=== PATIENT | male | born 1940 | race Caucasian/White ===

== ENCOUNTER → 2017-09-11 | Outpatient (CLI) | payer MEDICARE ==
[~2017-09-11] MED LIST: ACET-3017 PO; ALPR-445 PO; ASPI-1471 PO; ASPI-715 PO; ATOR40TA24 PO; CA C1TAB85 PO; CHOL200025 PO; CHOL500025 PO; CHOL500050 PO; COLC0.6C3 PO; CYA1000 PO; DIPH0.5D12 IM; ENA5 PO; FLU IM; FLU180SY9 IM; FLU45SYR17 IM; FLU45SYR25 IM ONLY; GLUCOSAMINE 1,1 EACH PO; INDO50CA92 PO; LISI-353 PO; MEC25 PO; MULT-817 PO; OMEG-24 PO; OMEG300C PO; ORP100 PO; PNEU0.5D3 IM; SIMV-54 PO; TRAM-420 PO; TRAZ-156 PO; VALS80TA7 PO; ZOLP-358 PO; ZOLP12.548 PO
[2017-09-11 10:53] LABS: PLATELET COUNT, AUTOMATED 235 K/uL (150-450)
== END ==
LOC: LAB 10:23
PROVIDERS: ATTEND Internal Medicine
DX: Z12.5 Encounter for screening for malignant neoplasm of prostate (principal); I12.9 Hypertensive chronic kidney disease with stage 1 through stage 4 chronic kidney disease, or unspecified chronic kidney disease; N18.3 Chronic kidney disease, stage 3 (moderate); E78.00 Pure hypercholesterolemia, unspecified; E55.9 Vitamin D deficiency, unspecified; R73.9 Hyperglycemia, unspecified
CPT/HCPCS: 36415; 81001; 82306; 83036; 84443; 85025; G0103; 82040; 82247; 82310; 82374; 82435; 82465; 82565; 82947; 83718; 84075; 84132; 84153; 84155; 84295; 84450; 84460; 84478; 84520

== ENCOUNTER → 2017-11-14 | Outpatient (CLI) | payer MEDICARE ==
--- NOTE | 2017-11-14 10:10 | RADIOLOGY IMAGING REPORT ---
FACILITY: [facility] PATIENT NAME: Yon Allen : 1940 MR: [id number] V: [id number] EXAM DATE: ORDERING PHYSICIAN: RENETTA TONY TECHNOLOGIST: [place] [facility] [place]: Yon Allen : 1940 Visit/Account:[id number] Date of Sevice: 11/14/2017 Brain MRI without contrast Comparisons: July 01, 2009 Additional pertinent history: Headache TECHNIQUE: Multiplanar, multisequence brain MRI was performed without gadolinium contrast. FINDINGS: Sagittal midline structures and craniocervical junction: Negative. Midline shift: None. Ventricles: Negative. Brain parenchyma: Diffusion weighted imaging: Negative. Gradient sequence: Negative. T2 weighted FLAIR images: Scattered foci of abnormal increased T2 signal within the periventricular white matter as well as within the brainstem. These foci are nonspecific but likely represent small vessel ischemic change on a chronic basis. Extra-axial spaces: Mild cerebral atrophy. Dural venous sinuses and major arterial flow voids: Negative. Mastoid air cells and paranasal sinuses: Lobular mucosal thickening involving both maxillary sinuses as well as the ethmoid air cells. Small mucous retention cyst involving the right maxillary sinus. Findings are stable since previous exam. Surrounding soft tissues and orbits: Negative. Impression: 1. Age related changes as described above. 2. No evidence of acute intracranial pathology. Report Dictated By: Maximilian Castañeda MD at 11/14/2017 10:01 AM Report E-Signed By: Maximilian Castañeda MD at 11/14/2017 10:06 AM WSN:[id number]
== END ==
LOC: MRI 02:48
PROVIDERS: ATTEND Internal Medicine
DX: G31.9 Degenerative disease of nervous system, unspecified (principal); J32.0 Chronic maxillary sinusitis; R51 Headache
CPT/HCPCS: 36415; 70551; 82040; 82247; 82310; 82374; 82435; 82565; 82947; 84075; 84132; 84155; 84295; 84450; 84460; 84520

== ENCOUNTER → 2017-11-20 | Outpatient (CLI) | payer MEDICARE ==
[~2017-11-20] MED LIST changes: +CHOL200051 PO
--- NOTE | 2017-11-20 14:27 | RADIOLOGY IMAGING REPORT ---
FACILITY: [facility] - [place] PATIENT NAME: Yon Allen : 1940 MR: [id number] V: [id number] EXAM DATE: ORDERING PHYSICIAN: RENETTA TONY TECHNOLOGIST: Location: [facility] Patient: Yon Allen : 1940 Visit/Account:[id number] Date of Sevice: 11/20/2017 KIDNEYS EXAMINATION: Renal ultrasound. History: Elevated creatinine COMPARISON STUDIES: November 13, 2012 FINDINGS: Kidneys: Right kidney- 10.5 x 4.6 x 4.3 cm cm Left kidney- 9.8 x 5.1 x 5.2 cm cm Uniform and symmetric blood flow in each kidney by Doppler ultrasound. Hydronephrosis: none There is a lobular contour to both kidneys. Slight increased echogenicity in the renal parenchyma bi laterally similar to the prior study Resistive index on the right is 0.71 on the left 0.76 Bladder: Prevoid five and 143 mm. Post for residual 2.5 mL. Bilateral ureteral jets are present. Abdominal aorta and IVC: Aorta and IVC are patent by Doppler ultrasound. IMPRESSION: There is slight increased echogenicity seen in the renal parenchyma bilaterally similar to the prior study. This can be seen with medical renal disease Report Dictated By: Giselle Quach MD at 11/20/2017 2:21 PM Report E-Signed By: Giselle Quach MD at 11/20/2017 2:24 PM WSN:[id number]
== END ==
LOC: US 02:22
PROVIDERS: ATTEND Internal Medicine
DX: I12.9 Hypertensive chronic kidney disease with stage 1 through stage 4 chronic kidney disease, or unspecified chronic kidney disease (principal); N18.3 Chronic kidney disease, stage 3 (moderate)
CPT/HCPCS: 76705

== ENCOUNTER 2018-01-03 10:42 | Outpatient (RCR) | payer MEDICARE ==
[2017-12-28 15:02] VITALS: BP 132/77
[2017-12-28 15:18] LABS: PLATELET COUNT, AUTOMATED 201 K/uL (150-450)
[2018-01-03 10:56] VITALS: BP 119/73
--- NOTE | 2018-01-03 18:08 | ONCOLOGY FOLLOW UP NOTE ---
EVENT DATE: January 03, 2018 DIAGNOSES 1. Stage 3 chronic kidney disease. 2. 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 3. Arthritis. 4. Hyperlipidemia. CHIEF COMPLAINT The patient is here today for followup of his biclonal gammopathy of unknown significance. HEMATOLOGY HISTORY The patient is a 77-year-old male who had been seen by Dr. Radha Benítez in 2013 after being evaluated for chronic kidney disease with creatinine 1.6. The patient had been seen by a distribution supervisor after that and he did a serum protein electrophoresis which came back abnormal. His serum protein immunoelectrophoresis did reveal high IgA at 465, low IgM at 32, normal IgG at 808. Immunoelectrophoresis revealed IgG kappa and IgA kappa biclonal proteins. He had a bone marrow aspiration biopsy done on April 14, 2014, which showed 3 % monoclonal plasma cells identified. FISH for myeloma showed CCND1/IGH translocation detected, which was detected in 40% of the cells. There were also 0.7% B cell lymphocytes with kappa excess by flow cytometry. The patient did not show for followup until he met with his primary care physician, Dr. Tellez, who advised him to resume his followup with a investment manager. HISTORY OF PRESENT ILLNESS The patient is here today for followup of his biclonal gammopathy of unknown significance. He is complaining of some nocturia and he has also vertigo. He has also gout, but he was using colchicine for acute attack, but other than that he is really doing fine. He was also diagnosed with stage 3 chronic kidney disease. PAST MEDICAL HISTORY 1. Hypertension. 2. Hypercholesterolemia. 3. Biclonal gammopathy, unknown significance. PAST SURGICAL HISTORY 1. Tonsillectomy at the age of [age]. 2. Mastoidectomy at eighteen months. 3. Vasectomy. 4. Hemorrhoidectomy. FAMILY HISTORY Father with lung cancer at age of seventy-seven. SOCIAL HISTORY The patient is a . He had four children, two sons and two daughters. His of cancer. 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 He quit tobacco over twenty years ago after twenty years of nearly one pack a day. He drinks two martinis daily and denies any abuse of illicit drugs. CURRENT MEDICATIONS 1. Fish oil. 2. Zolpidem. 3. Simvastatin. 4. Lisinopril. 5. Aspirin. ALLERGIES No known drug allergies. REVIEW OF SYSTEMS CONSTITUTIONAL: No appetite or weight change. No fever, chills or sweating. No recent infection. HEENT: Ears: No tinnitus or hearing problem. Nose: No nasal discharge or epistaxis. Throat: No sore throat or mouth ulcers. Eyes: No diplopia or visual changes. RESPIRATORY: No shortness of breath. No cough, expectoration or hemoptysis. CARDIOVASCULAR: No chest pain, orthopnea, or paroxysmal nocturnal dyspnea (PND) . No edema. No palpitations. GASTROINTESTINAL: No nausea or vomiting. No diarrhea or constipation. No change in bowel movements. No heartburn or swallowing difficulties. No abdominal pain. No jaundice. No hematemesis, melena or rectal bleeding. GENITOURINARY: He has some nocturia. MUSCULOSKELETAL: He has pain in the joints, mainly shoulders and elbows. NEUROLOGICAL: No tingling or numbness in the hands or feet. No headaches or convulsions. He has vertigo. HEMATOLOGIC/LYMPHATIC: No bleeding or easy bruising. No weakness or fatigue. No enlarged lymph nodes. SKIN: No skin rash or lumps. PSYCHIATRIC: No anxiety or depression. PHYSICAL EXAMINATION GENERAL: Looks stable. Well-developed, well-nourished, and in no acute distress. VITAL SIGNS: Blood pressure 119/73, pulse 63 per minute, respirations 16 per minute, temperature 98.1, pulse oximetry 91% on room air. HEENT: Head: Atraumatic. No sinus tenderness to palpation. Eyes: No icterus or conjunctivitis. Mouth and throat: No oral thrush or mucositis. NECK: Supple. No cervical or supraclavicular lymphadenopathy. LUNGS: Clear to auscultation and percussion bilaterally. HEART: Regular rate and rhythm. No gallops, murmurs, clicks or rubs. ABDOMEN: Soft and lax. No tenderness. No hepatosplenomegaly. No masses. EXTREMITIES: No cyanosis, clubbing or edema. LYMPHATICS: No peripheral lymphadenopathy. NEUROLOGICAL: Conscious, alert and oriented times three. No focal motor or sensory deficits. PSYCHIATRIC: Mood and affect appear normal. SKIN: No skin rash, bruise or purpuric eruption. DIAGNOSTIC DATA CBC showed white count 10.4, hemoglobin 16.7, hematocrit 48.2, platelets 201, 000. Chem panel totally normal except BUN 26, creatinine 1.7. Uric acid was 9. Beta-2 microglobulin was 3.1. [place] free light chain was 3.01 while lambda free light chain was normal at 1.11 with kappa to lambda free light chain ratio of 2.71, which is mildly elevated. IgG was 755, IgA was 539, IgM was 30. Immunoelectrophoresis did reveal two peaks, one for IgG kappa, the other one for IgA kappa, with 0.4 g/dL and 0.31 g/dL respectively which are nearly stable. ASSESSMENT 1. 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 Current level 0.4 g/dL and 0.31 g/dL. Those levels are nearly stable. He is asymptomatic currently. I am planning to see him again in six months with CBC, chem panel, LDH, uric acid and myeloma profile. His bone marrow aspiration biopsy done April 14, 2014 did reveal approximately 3% monoclonal plasma cells consistent with plasma cell dyscrasia with abnormal CCND1/IGH translocation detected in 40% of the cells. I am planning to continue followup and see him again in six months with myeloma profile. 2. Hyperuricemia with uric acid at 9 and patient has stage 3 chronic kidney disease. I am planning to put him on allopurinol 100 mg daily, and I contacted Dr. Tellez, his primary care about that. 2. Hypercholesterolemia, on treatment. 3. Hypertension, on treatment. PLAN 1. Continue followup. 2. Patient to return in six months with CBC, chem panel, LDH, uric acid and myeloma profile. 3. Patient to contact us for any new concerns or complaints. [facility]
== END 2018-01-16 13:56 | disposition home or self-care (01) ==
LOC: ONC 10:42
PROVIDERS: ATTEND Internal Medicine Hematology
DX: D47.2 Monoclonal gammopathy (principal); E79.0 Hyperuricemia without signs of inflammatory arthritis and tophaceous disease; E78.00 Pure hypercholesterolemia, unspecified; N18.3 Chronic kidney disease, stage 3 (moderate); E78.5 Hyperlipidemia, unspecified; I12.9 Hypertensive chronic kidney disease with stage 1 through stage 4 chronic kidney disease, or unspecified chronic kidney disease
CPT/HCPCS: 36415; 82232; 83615; 83883; 84550; 85025; 86334; G0463; 82040; 82247; 82310; 82374; 82435; 82565; 82947; 84075; 84132; 84155; 84295; 84450; 84460; 84520; 99212

== ENCOUNTER → 2018-03-22 | Outpatient (CLI) | payer MEDICARE ==
[~2018-03-22] MED LIST changes: +ALLO100T70 PO; +INDO-23 PO; -INDO50CA92 PO; -TRAZ-156 PO; +TRAZ50TA34 PO; -VALS80TA7 PO; +VALS80TA8 PO; +ZOLP6.2530 PO
[2018-03-22 10:50] LABS: PLATELET COUNT, AUTOMATED 217 K/uL (150-450)
== END ==
LOC: LAB 10:28
PROVIDERS: ATTEND Internal Medicine
DX: R73.9 Hyperglycemia, unspecified (principal); E55.9 Vitamin D deficiency, unspecified; I12.9 Hypertensive chronic kidney disease with stage 1 through stage 4 chronic kidney disease, or unspecified chronic kidney disease; N18.3 Chronic kidney disease, stage 3 (moderate); E78.2 Mixed hyperlipidemia
CPT/HCPCS: 36415; 81001; 82040; 82247; 82306; 82310; 82374; 82435; 82465; 82565; 82947; 83036; 83718; 84075; 84132; 84155; 84295; 84443; 84450; 84460; 84478; 84520; 84550; 85025

== ENCOUNTER → 2018-05-08 | Outpatient (CLI) | payer MEDICARE | LOC: LAB 08:37 | PROVIDERS: ATTEND Internal Medicine Nephrology | DX: D47.2 Monoclonal gammopathy (principal); N18.3 Chronic kidney disease, stage 3 (moderate); I12.9 Hypertensive chronic kidney disease with stage 1 through stage 4 chronic kidney disease, or unspecified chronic kidney disease | CPT/HCPCS: 36415; 82040; 82310; 82374; 82435; 82565; 82947; 83970; 84100; 84132; 84295; 84520 ==

== ENCOUNTER → 2018-05-14 | Outpatient (CLI) | payer MEDICARE ==
[2018-05-14 08:47] LABS: PLATELET COUNT, AUTOMATED 220 K/uL (150-450)
== END ==
LOC: LAB 08:23
PROVIDERS: ATTEND Internal Medicine Nephrology
DX: N18.3 Chronic kidney disease, stage 3 (moderate) (principal); I12.9 Hypertensive chronic kidney disease with stage 1 through stage 4 chronic kidney disease, or unspecified chronic kidney disease; D47.2 Monoclonal gammopathy
CPT/HCPCS: 36415; 82306; 85025

== ENCOUNTER → 2018-05-17 | Outpatient (CLI) | payer MEDICARE | LOC: LAB 10:37 | PROVIDERS: ATTEND Internal Medicine Nephrology | DX: N18.3 Chronic kidney disease, stage 3 (moderate) (principal) | CPT/HCPCS: 82570; 84156 ==

== ENCOUNTER → 2018-06-06 | Outpatient (CLI) | payer MEDICARE ==
[~2018-06-06] MED LIST changes: +FLU180SY11 IM
== END ==
LOC: LAB 11:03
PROVIDERS: ATTEND Internal Medicine
DX: N40.1 Benign prostatic hyperplasia with lower urinary tract symptoms (principal)
CPT/HCPCS: 36415; 84153

== ENCOUNTER 2018-07-04 10:41 | Outpatient (RCR) | payer MEDICARE ==
[2018-06-21 11:13] VITALS: BP 135/89
[2018-06-21 11:31] LABS: PLATELET COUNT, AUTOMATED 223 K/uL (150-450)
[2018-07-04 11:01] VITALS: BP 174/92
--- NOTE | 2018-07-05 03:56 | [facility]AR[facility] ONCOLOGY NOTE ---
EVENT DATE: July 04, 2018 DIAGNOSES 1. Stage 3 chronic kidney disease. 2. 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 3. Arthritis. 4. Hyperlipidemia. CHIEF COMPLAINT The patient is here today for followup of his biclonal gammopathy of unknown significance. HEMATOLOGY HISTORY The patient is a 77-year-old male who had been seen by Dr. Radha Benítez in 2013 after being evaluated for chronic kidney disease with creatinine 1.6. The patient had been seen by a open die inspector after that and he did a serum protein electrophoresis which came back abnormal. His serum protein immunoelectrophoresis did reveal high IgA at 465, low IgM at 32, normal IgG at 808. Immunoelectrophoresis revealed IgG kappa and IgA kappa biclonal proteins. He had a bone marrow aspiration biopsy done on April 14, 2014, which showed 3% monoclonal plasma cells identified. FISH for myeloma showed CCND1/IGH translocation detected, which was detected in 40% of the cells. There were also 0.7% B cell lymphocytes with kappa excess by flow cytometry. The patient did not show for followup until he met with his primary care physician, Dr. Tellez, who advised him to resume his followup with a padder. HISTORY OF PRESENT ILLNESS The patient is here today for followup of his biclonal gammopathy of unknown significance. He is complaining of some nocturia. He also has some cough with expectoration. He has pain in his shoulder sometimes, but other than that, he is really doing very well. PAST MEDICAL HISTORY 1. Hypertension. 2. Hypercholesterolemia. 3. Biclonal gammopathy, unknown significance. PAST SURGICAL HISTORY 1. Tonsillectomy at the age of [age]. 2. Mastoidectomy at eighteen months. 3. Vasectomy. 4. Hemorrhoidectomy. FAMILY HISTORY Father with lung cancer at age of seventy-seven. SOCIAL HISTORY The patient is a . He had four children, two sons and two daughters. His of cancer. 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 He quit tobacco over twenty years ago after twenty years of nearly one pack a day. He drinks two martinis daily and denies any abuse of illicit drugs. CURRENT MEDICATIONS 1. Fish oil. 2. Zolpidem. 3. Simvastatin. 4. Lisinopril. 5. Aspirin. ALLERGIES No known drug allergies. REVIEW OF SYSTEMS CONSTITUTIONAL: No appetite or weight change. No fever, chills or sweating. No recent infection. HEENT: Ears: No tinnitus or hearing problem. Nose: No nasal discharge or epistaxis. Throat: No sore throat or mouth ulcers. Eyes: No diplopia or visual changes. RESPIRATORY: Has cough with expectoration. CARDIOVASCULAR: No chest pain, orthopnea, or paroxysmal nocturnal dyspnea (PND). No edema. No palpitations. GASTROINTESTINAL: No nausea or vomiting. No diarrhea or constipation. No change in bowel movements. No heartburn or swallowing difficulties. No abdominal pain. No jaundice. No hematemesis, melena or rectal bleeding. GENITOURINARY: Has nocturia. MUSCULOSKELETAL: He has pain in the shoulders. NEUROLOGICAL: No tingling or numbness in the hands or feet. No headaches or convulsions. HEMATOLOGIC/LYMPHATIC: No bleeding or easy bruising. No weakness or fatigue. No enlarged lymph nodes. SKIN: No skin rash or lumps. PSYCHIATRIC: No anxiety or depression. PHYSICAL EXAMINATION GENERAL: Looks stable. Well-developed, well-nourished, and in no acute distress. VITAL SIGNS: Blood pressure 174/92, pulse 63 per minute, respirations 16 per minute, temperature 97.1, pulse oximetry 92% on room air. HEENT: Head: Atraumatic. No sinus tenderness to palpation. Eyes: No icterus or conjunctivitis. Mouth and throat: No oral thrush or mucositis. NECK: Supple. No cervical or supraclavicular lymphadenopathy. LUNGS: Clear to auscultation and percussion bilaterally. HEART: Regular rate and rhythm. No gallops, murmurs, clicks or rubs. ABDOMEN: Soft and lax. No tenderness. No hepatosplenomegaly. No masses. EXTREMITIES: No cyanosis, clubbing or edema. LYMPHATICS: No peripheral lymphadenopathy. NEUROLOGICAL: Conscious, alert and oriented times three. No focal motor or sensory deficits. PSYCHIATRIC: Mood and affect appear normal. SKIN: No skin rash, bruise or purpuric eruption. DIAGNOSTIC DATA CBC showed white count 8000, hemoglobin 15.4, hematocrit 45.9, platelet 223,000. Chem panel totally normal except creatinine 1.3, AST 39. Beta-2 microglobulin is 3. [place] free light chain is 2.9. Lambda free light chain is 1.05. Oclbb-lp-irapno free light chain ratio is 2.76. IgG level is 756, IgA level high at 521, and IgM level 29. Serum protein electrophoresis showed biclonal gammopathy, showed IgG kappa and IgA kappa at 0.39 g/dL and 0.34 g/dL. ASSESSMENT 1. 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 Current level is 0.39 g/dL and 0.34 g/dL, which are stable. Patient is asymptomatic. He is doing really very well currently. I am planning to see him again in six months with CBC, chem panel, LDH, uric acid, and myeloma profile. He had a bone marrow aspiration biopsy done April 14, 2014, which did reveal approximately 3% monoclonal plasma cells consistent with plasma cell dyscrasia, with abnormal CCND1/IgH translocation detected in 40% of the cells. 2. Hyperuricemia. He is on allopurinol. 2. Hypercholesterolemia, on treatment. 3. Hypertension, on treatment. PLAN 1. Continue followup. 2. Patient to return in six months with CBC, chem panel, LDH, uric acid and myeloma profile. 3. Patient to contact us for any new concerns or complaints. [facility]
== END 2018-07-17 13:26 | disposition home or self-care (01) ==
LOC: ONC 10:41
PROVIDERS: ATTEND Internal Medicine Hematology
DX: D47.2 Monoclonal gammopathy (principal); I10 Essential (primary) hypertension; E78.00 Pure hypercholesterolemia, unspecified; E79.0 Hyperuricemia without signs of inflammatory arthritis and tophaceous disease
CPT/HCPCS: 36415; 82232; 83615; 83883; 84550; 85025; 86334; G0463; 82040; 82247; 82310; 82374; 82435; 82565; 82947; 84075; 84132; 84155; 84295; 84450; 84460; 84520; 99212

== ENCOUNTER → 2018-09-19 | Outpatient (CLI) | payer MEDICARE ==
[2018-09-19 11:23] LABS: PLATELET COUNT, AUTOMATED 206 K/uL (150-450)
== END ==
LOC: LAB 10:49
PROVIDERS: ATTEND Internal Medicine
DX: R79.9 Abnormal finding of blood chemistry, unspecified (principal); E55.9 Vitamin D deficiency, unspecified; N18.3 Chronic kidney disease, stage 3 (moderate); E78.2 Mixed hyperlipidemia
CPT/HCPCS: 36415; 81001; 82040; 82247; 82306; 82310; 82374; 82435; 82465; 82565; 82947; 83036; 83718; 84075; 84132; 84155; 84295; 84443; 84450; 84460; 84478; 84520; 84550; 85025

== ENCOUNTER → 2018-11-27 | Outpatient (CLI) | payer MEDICARE ==
[~2018-11-27] MED LIST changes: +MIRT-22 PO; +MIRT30TA10 PO; +VALS40TA7 PO
== END ==
LOC: LAB 10:55
PROVIDERS: ATTEND Internal Medicine
DX: D47.2 Monoclonal gammopathy (principal); N18.3 Chronic kidney disease, stage 3 (moderate); I10 Essential (primary) hypertension
CPT/HCPCS: 36415; 82040; 82247; 82310; 82374; 82435; 82565; 82947; 84075; 84132; 84155; 84295; 84450; 84460; 84520

== ENCOUNTER 2019-01-02 11:48 | Outpatient (RCR) | payer MEDICARE ==
[2018-12-26 10:45] LABS: PLATELET COUNT, AUTOMATED 196 K/uL (150-450)
[2018-12-26 11:00] VITALS: BP 138/88
[~2019-01-02 11:48] MED LIST changes: -DIPH0.5D12 IM; +DIPH0.5S2 IM; -TRAZ50TA34 PO; +TRAZ50TA52 PO
[2019-01-02 12:00] VITALS: BP 128/74
--- NOTE | 2019-01-02 23:11 | ONCOLOGY FOLLOW UP NOTE ---
EVENT DATE: January 02, 2019 DIAGNOSES 1. Stage 3 chronic kidney disease. 2. 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 3. Arthritis. 4. Hyperlipidemia. CHIEF COMPLAINT Patient is here today for followup of his biclonal gammopathy of unknown significance. HEMATOLOGY HISTORY Patient is a 78-year-old male who had been seen by Dr. Radha Benítez in 2013 after being evaluated for chronic kidney disease with creatinine 1.6. Patient had been seen by a section plotter operator after that, and he did a serum protein electrophoresis which came back abnormal. His serum protein immunoelectrophoresis did reveal high IgA at 465, low IgM at 32, normal IgG at 808. Immunoelectrophoresis revealed IgG kappa and IgA kappa biclonal proteins. He had a bone marrow aspiration biopsy done on April 14, 2014, which showed 3% monoclonal plasma cells identified. FISH for myeloma showed CCND1/IGH translocation detected, which was detected in 40% of the cells. There were also 0.7% B-cell lymphocytes with kappa excess by flow cytometry. Patient did not show for followup until he met with his primary care physician, Dr. Tellez, who advised him to resume his followup with a plate inspector. HISTORY OF PRESENT ILLNESS Patient is here today for followup of his biclonal gammopathy of unknown significance. He is complaining of some night sweating occasionally. He has some cough with clear phlegm and exertional shortness of breath sometimes. He has some pain in his shoulders and elbows, but other than that, his general condition really is very good. He has also some nocturia. PAST MEDICAL HISTORY 1. Hypertension. 2. Hypercholesterolemia. 3. Biclonal gammopathy, unknown significance. PAST SURGICAL HISTORY 1. Tonsillectomy at the age of [age]. 2. Mastoidectomy at 18 months. 3. Vasectomy. 4. Hemorrhoidectomy. FAMILY HISTORY Father with lung cancer at age of 77. SOCIAL HISTORY The patient is a . He has four children, two sons and two daughters. His is of cancer. 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 He quit tobacco over 20 years ago after 20 years of nearly one pack a day. He drinks two martinis daily and denies any abuse of illicit drugs. CURRENT MEDICATIONS 1. Fish oil. 2. Zolpidem. 3. Simvastatin. 4. Lisinopril. 5. Aspirin. ALLERGIES No known drug allergies. REVIEW OF SYSTEMS CONSTITUTIONAL: No appetite or weight change. No fever or chills. He has some sweating. No recent infection. HEENT: Ears: No tinnitus or hearing problem. Nose: No nasal discharge or epistaxis. Throat: No sore throat or mouth ulcers. Eyes: No diplopia or visual changes. RESPIRATORY: He has cough with expectoration and shortness of breath. No hemoptysis. CARDIOVASCULAR: No chest pain, orthopnea, or paroxysmal nocturnal dyspnea (PND). No edema. No palpitations. GASTROINTESTINAL: No nausea or vomiting. No diarrhea or constipation. No change in bowel movements. No heartburn or swallowing difficulties. No abdominal pain. No jaundice. No hematemesis, melena, or rectal bleeding. GENITOURINARY: No hematuria or dysuria. MUSCULOSKELETAL: He has pain in the shoulders and elbows. NEUROLOGIC: No tingling or numbness in the hands or feet. No headaches or convulsions. HEMATOLOGIC/LYMPHATIC: No bleeding or easy bruising. No weakness or fatigue. No enlarged lymph nodes. SKIN: No skin rash or lumps. PSYCHIATRIC: No anxiety or depression. PHYSICAL EXAMINATION GENERAL: Looks stable. Well developed, well nourished, and in no acute distress. VITAL SIGNS: Blood pressure 128/74, pulse 76 per minute, respirations 16 per minute, temperature 98, pulse ox 90% on room air. HEENT: Head: Atraumatic. No sinus tenderness to palpation. Eyes: No icterus or conjunctivitis. Mouth and Throat: No oral thrush or mucositis. NECK: Supple. No cervical or supraclavicular lymphadenopathy. LUNGS: Clear to auscultation and percussion bilaterally. HEART: Regular rate and rhythm. No gallops, murmurs, clicks, or rubs. ABDOMEN: Soft and lax. No tenderness. No hepatosplenomegaly. No masses. EXTREMITIES: No cyanosis, clubbing, or edema. LYMPHATICS: No peripheral lymphadenopathy. NEUROLOGIC: Conscious, alert, and oriented times three. No focal motor or sensory deficits. PSYCHIATRIC: Mood and affect appear normal. SKIN: No skin rash, bruise, or purpuric eruption. DIAGNOSTIC DATA CBC showed white count 7.3, hemoglobin 16.4, hematocrit 48.4, platelets 196,000. Chem panel totally normal except chloride 109, carbon dioxide 20, creatinine 1.5, and blood sugar 122. Beta-2 microglobulin is slightly elevated at 3.3. [place] free light chain is mildly elevated at 2.95. IgG level is low at 744, IgA is high at 481, and IgM is low at 30. Serum protein immunoelectrophoresis showed two peaks of monoclonal proteins of IgG kappa level 0.41 g/dL, and IgA kappa and the level is 0.37 g/dL, which are stable. ASSESSMENT 1. 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 Current level of IgG kappa is 0.41 g/dL, and the IgA kappa is 0.37 g/dL, which are stable. Patient is asymptomatic. His general condition is very good. I am planning to continue followup. I will see him in six months with CBC, chemistry panel, LDH, uric acid, and myeloma profile. He had a bone marrow aspiration biopsy done April 14, 2014, which revealed approximately 3% monoclonal plasma cells consistent with plasma cell dyscrasia, with abnormal CCND1/IgH translocation detected in 40% of those cells. 2. Hyperuricemia. He is on allopurinol. 2. Hypercholesterolemia, on treatment. 3. Hypertension, on treatment. PLAN 1. Continue followup. 2. Patient to return in six months with CBC, chem panel, LDH, uric acid, and myeloma profile. 3. Patient to contact us for any new concerns or complaints. [facility]
== END 2019-01-20 13:20 | disposition home or self-care (01) ==
LOC: ONC 11:48
PROVIDERS: ATTEND Internal Medicine Hematology
DX: I12.9 Hypertensive chronic kidney disease with stage 1 through stage 4 chronic kidney disease, or unspecified chronic kidney disease (principal); N18.3 Chronic kidney disease, stage 3 (moderate); D47.2 Monoclonal gammopathy; E78.5 Hyperlipidemia, unspecified; Z87.891 Personal history of nicotine dependence; R05 Cough; R06.02 Shortness of breath; E79.0 Hyperuricemia without signs of inflammatory arthritis and tophaceous disease; Z79.899 Other long term (current) drug therapy; E78.00 Pure hypercholesterolemia, unspecified
CPT/HCPCS: 36415; 82232; 83615; 83883; 84550; 85025; 86334; G0463; 82040; 82247; 82310; 82374; 82435; 82565; 82947; 84075; 84132; 84155; 84295; 84450; 84460; 84520; 99212

== ENCOUNTER → 2019-03-25 | Outpatient (CLI) | payer MEDICARE ==
[2019-03-25 11:58] LABS: PLATELET COUNT, AUTOMATED 246 K/uL (150-450)
== END ==
LOC: LAB 11:10
PROVIDERS: ATTEND Internal Medicine
DX: Z12.5 Encounter for screening for malignant neoplasm of prostate (principal); D47.2 Monoclonal gammopathy; N18.3 Chronic kidney disease, stage 3 (moderate); I12.9 Hypertensive chronic kidney disease with stage 1 through stage 4 chronic kidney disease, or unspecified chronic kidney disease
CPT/HCPCS: 36415; 82607; 84443; 85025; G0103; 82040; 82247; 82310; 82374; 82435; 82465; 82565; 82947; 83718; 84075; 84132; 84153; 84155; 84295; 84450; 84460; 84478; 84520

== ENCOUNTER → 2019-04-10 | Outpatient (CLI) | payer MEDICARE | LOC: LAB 11:13 | PROVIDERS: ATTEND Internal Medicine | DX: N18.3 Chronic kidney disease, stage 3 (moderate) (principal) | CPT/HCPCS: 36415; 82040; 82247; 82310; 82374; 82435; 82565; 82947; 84075; 84132; 84155; 84295; 84450; 84460; 84520 ==